=== PATIENT | male | born 1985 | race Caucasian/White ===

== ENCOUNTER 2025-05-06 08:51 | Emergency (ER) | payer BC, SELFPAY ==
--- NOTE | ~2025-05-06 | XR_ITS ---
EXAMINATION: XR foot RT min 3V, 05/06/2025 9:13 CDT HISTORY: pain 1st MTP joint/ no known trauma COMPARISON: No comparisons available. Findings: No acute fracture or malalignment. No significant degenerative changes. Soft tissues unremarkable. Impression: No acute fracture or malalignment. Reviewed, dictated and finalized at location P. Impression: No acute fracture or malalignment.
[2025-05-06 09:05] VITALS: BP 130/94; PULSE 76; RESP 18; TEMP 36; O2SAT 100
--- NOTE | 2025-05-06 09:05 | ED.LOWEXIN ---
HPI - Extremity Injury (Lower) General Chief Complaint: Extremity Injury, Lower Stated Complaint: RT Foot Pain Time Seen by Provider: 05/06/25 09:05 Source: patient Mode of arrival: ambulatory Limitations: no limitations History of Present Illness HPI Narrative: 40-year-old male presents with complaint of pain to right great toe starting yesterday around 8:00 p.m.. Denies injury. No history of gout. Started to notice a aching to toe. Worse this morning. Painful at rest, worse when ambulatory. All systems reviewed and negative except as noted above. Related Data Allergies Allergy/AdvReac Type Severity Reaction Status Date / Time Penicillins Allergy Mild Hives Verified 05/06/25 09:02 PMFSH Comments At time of signature, agree with nursing past medical, surgical, social and family history. There is no relevant family history pertinent to the presenting complaint. Exam Narrative: GENERAL: This is a well-nourished, well-developed patient, in no apparent distress. HEAD: normocephalic, atraumatic. EYES: PERRL. Sclera clear/white. Vision is grossly intact. EARS: External ears normal NOSE: External nose normal NECK: Neck supple, non-tender without lymphadenopathy, masses or thyromegaly. CARDIOVASCULAR: Regular rate and rhythm without murmurs, gallops, or rubs. RESPIRATORY: Clear to auscultation. Breath sounds equal bilaterally. No wheezes, rales, or rhonchi. SKIN: warm, Dry, intact with no suspicious lesions or rash, good texture and turgor. NEURO: awake, alert, and oriented to person, place and time. There were no obvious focal neurologic abnormalities. EXTREMITIES: mild swelling to right 1st MTP with tenderness on palpation. No erythema or warmth noted. Course Course Level of Care: Express Care Visit Vital Signs Vital signs: Vital Signs Temperature 36.0 C L 05/06/25 09:05 Pulse Rate 76 05/06/25 09:05 Respiratory Rate 18 05/06/25 09:05 Blood Pressure 130/94 H 05/06/25 09:05 Pulse Oximetry 100 05/06/25 09:05 Oxygen Delivery Room Air 05/06/25 09:05 Temperature 36.0 C L 05/06/25 09:05 Pulse Rate 76 05/06/25 09:05 Respiratory Rate 18 05/06/25 09:05 Blood Pressure 130/94 H 05/06/25 09:05 Pulse Oximetry 100 05/06/25 09:05 Oxygen Delivery Room Air 05/06/25 09:05 Review MDM - Extremity Injury (Lower) MDM Narrative Medical decision making narrative: x-ray of right foot negative. Discussed diagnosis of gout with pain her martin. Recommend they follow up primary care physician for outpatient uric acid level. Will treat with diclofenac and Medrol Dosepak. Patient voiced understanding. Discharge Plan Discharge Clinical Impression: Gout involving toe of right foot Qualifiers: Gout etiology: unspecified cause Chronicity: acute Qualified Code(s): M10.9 - Gout, unspecified Patient Disposition: Home Condition: Stable Instructions: Gout (ED) Additional Instructions: The X-ray of your right foot was normal. Take medications as prescribed. Follow-up with your primary care physician at next available appointment for further evaluation of your pain. Patient Language: Mauritian Prescriptions: New methylprednisolone [Medrol (Chucky)] 4 mg tablets,dose pack See Rx Instructions PO .COMPLEX Qty: 21 0RF Rx Instructions: orally per package directions diclofenac potassium 50 mg tablet 50 mg PO TID 10 Days Qty: 30 0RF Follow-up/Referrals: Jordan,LYNSEY Bravo [Primary Care Provider, Unknown] Time of Disposition: 09:36
== END 2025-05-06 09:42 | disposition home or self-care (01) ==
PROVIDERS: Emergency Provider Nurse Practitioner Family; PCP Nurse Practitioner
DX: M10.9 Gout, unspecified (principal)
CPT/HCPCS: 73630; 99203; G0463